=== PATIENT | female | born 1950 | race Caucasian/White ===

== ENCOUNTER 2017-03-24 19:17 | Emergency (ER) | payer OTHER ==
[~2017-03-24] VITALS: Ht 167.6 cm; Wt 86.4 kg
[~2017-03-24 19:17] MED LIST: ASPIR-LOW81 MG PO; COENZYME Q-1010 MG PO; GARLIC SUPPLEM300 MG PO; GLUCOSAMINE/CHONDROI PO; LEVOTHYROXINE0.05 M1 PO; MVI PO; VITAMIN B12 PO; VITAMIN E800 I1 PO
[2017-03-24 19:21] VITALS: TEMP 97.4
[2017-03-24] MEDS ORDERED: ZOCOR 10MG10 MG PO (19:26)
[2017-03-24] MEDS ORDERED: MULTI VITAMINS1 TAB PO (19:27)
[2017-03-24 20:18] LABS: COLLECTION METHOD CLEAN CATCH
[2017-03-24 20:26] LABS: MUCOUS Present /lpf; PH 5 (5-8); SQUAMOUS EPITHELIAL 0-2 /hpf; URINE APPEARANCE Clear; URINE BACTERIA None Seen /hpf; URINE BILIRUBIN Negative (NEGATIVE); URINE BLOOD 2+ (NEGATIVE); URINE COLOR Yellow; URINE GLUCOSE Negative (NEGATIVE); URINE KETONE Trace (NEGATIVE); URINE LEUKOCYTE ESTERASE Trace (NEGATIVE); URINE PROTEIN(semi-quant) Negative (NEGATIVE); URINE UROBILINOGEN Negative (NEGATIVE); URINE WBC 0-2 /hpf
[2017-03-24 20:32] LABS: ADJUSTED CALCIUM 8.8 mg/dL (8.4-10.2); ALANINE AMINOTRANSFERASE 29 U/L (9-52); ALBUMIN 4.7 gm/dL (3.5-5.0); ALKALINE PHOSPHATASE 134 U/L (50-136); ANION GAP 18 mmol/L (7-16); BILIRUBIN,TOTAL 0.6 mg/dL (0.0-1.0); BLOOD UREA NITROGEN 26 mg/dL (7-17); CALCIUM 9.4 mg/dL (8.4-10.2); CARBON DIOXIDE 22 mmol/L (22-30); CHLORIDE 101 mmol/L (98-107); CREATININE, serum 0.72 mg/dL (0.52-1.25); GLUCOSE 105 mg/dL (74-106); LIPASE 76 U/L (23-300); POTASSIUM 3.7 mmol/L (3.4-5.0); SODIUM 141 mmol/L (137-145); TOTAL PROTEIN 7.9 gm/dL (6.4-8.2)
[2017-03-24 20:37] LABS: BASO # 0.1 (0.0-0.2); BASO % 0.6 % (0.0-2.0); EOS # 0.2 (0.0-0.7); EOS % 1.4 % (0-4.0); GRAN # 10.5 (1.4-6.5); GRAN % 79.7 % (42.2-75.2); HEMATOCRIT 38.7 % (37.0-47.0); HEMOGLOBIN 12.7 g/dl (12.5-16.0); LYMPH # 1.8 (1.2-3.4); LYMPH % 13.4 % (20.0-51.0); MEAN CELL VOLUME 82 fl (80.0-100.0); MEAN CORPUSCULAR HEMOGLOBIN 27 pg (27.0-31.0); MEAN CORPUSCULAR HGB CONC 33 g/dl (33.0-37.0); MEAN PLATELET VOLUME 10.2 fl (7.4-10.4); MONO # 0.6 (0.1-0.6); MONO % 4.6 % (1.7-9.3); PLATELET COUNT 251 K/mm3 (130-400); WHITE BLOOD COUNT 13.2 K/mm3 (4.8-10.8)
[2017-03-24 20:44] LABS: TROPONIN-I < 0.012 ng/mL (0.000-0.034)
[2017-03-24 20:47] VITALS: BP 150/88
[2017-03-24] MEDS ORDERED: ZOFRAN ODT4 MG PO (21:17)
[2017-03-24 21:42] VITALS: PULSE 70
== END 2017-03-24 21:45 | disposition home or self-care (01) ==
LOC: COL.ER 19:17
PROVIDERS: Emergency Medicine; Family Medicine
DX: R11.2 Nausea with vomiting, unspecified (principal); R42 Dizziness and giddiness; E03.9 Hypothyroidism, unspecified; K21.9 Gastro-esophageal reflux disease without esophagitis; E78.5 Hyperlipidemia, unspecified; E78.00 Pure hypercholesterolemia, unspecified; Z79.82 Long term (current) use of aspirin; Z85.41 Personal history of malignant neoplasm of cervix uteri
CPT/HCPCS: J2405; J7030

== ENCOUNTER → 2017-06-06 | Outpatient (CLI) | payer OTHER ==
[~2017-06-06] MED LIST changes: +MULTI VITAMINS1 TAB PO; +ZOCOR 10MG10 MG PO; +ZOFRAN ODT4 MG PO
== END ==
LOC: MC.RAD 08:14
DX: Z12.31 Encounter for screening mammogram for malignant neoplasm of breast (principal)

== ENCOUNTER → 2018-09-28 | Outpatient (CLI) | payer BC | LOC: MC.RAD 07:00 | DX: Z12.31 Encounter for screening mammogram for malignant neoplasm of breast (principal); N64.89 Other specified disorders of breast ==

== ENCOUNTER → 2018-10-02 | Outpatient (CLI) | payer BC | LOC: MC.RAD 10:00 | DX: N63.20 Unspecified lump in the left breast, unspecified quadrant (principal) | CPT/HCPCS: G0279 ==

== ENCOUNTER 2019-02-19 13:45 | Day surgery (SDC) | payer BC ==
[2019-02-19] VITALS (8 sets, daily range): BP systolic 99–150; BP diastolic 61–86; PULSE 45–70; TEMP 97.6–98.5
[~2019-02-19] VITALS: Ht 167.6 cm; Wt 83.6 kg
[~2019-02-19 13:45] MED LIST changes: -COENZYME Q-1010 MG PO; +COENZYME Q-10100 M1 PO; -GARLIC SUPPLEM300 MG PO; -LEVOTHYROXINE0.05 M1 PO; -MULTI VITAMINS1 TAB PO; +ONE-A-DAY WOMEN1 TAB PO; +PHARMASSURE GA500 MG PO; +SYNTHROID0.05 MG/TA PO; -ZOCOR 10MG10 MG PO; +ZOCOR 20MG20 MG PO
[2019-02-19] MEDS ORDERED: MASON NATURAL500 MG PO (14:06)
[2019-02-19] MEDS ORDERED: MAGNESIUM250 M1 PO (14:06)
[2019-02-19] MEDS ORDERED: CALCIUM CITRAT950 MG PO (14:07)
[2019-02-19] MEDS ORDERED: GLUCOSAMINE & C1 CA2 PO (14:07)
[2019-02-19] MEDS ORDERED: SELENIUM200 MC5 PO (14:08)
[2019-02-19] MEDS ORDERED: LUTEIN6 MG PO (14:08)
[2019-02-19] MEDS ORDERED: NATURE'S BLE1000 MCG PO (14:09)
[2019-02-19] MEDS ORDERED: NATURAL E400 IU PO (14:09)
[2019-02-19] MEDS ORDERED: BILBERRY EXTRAC80 MG PO (14:10)
[2019-02-19] MEDS ORDERED: EPA FISH OIL1 SGL PO (14:11)
[2019-02-19] MEDS ORDERED: PRILOTC PO (14:11)
--- NOTE | 2019-02-19 15:15 | NUR ---
Patient returned to [facility], alert and oriented. Ambulated to chair without difficulty. Vital signs obtained, WNL. Denies any pain or nausea. States she would like a water and apple sauce. Call [facility]kins within reach, will continue to monitor.
--- NOTE | 2019-02-19 15:30 | NUR ---
Patient states that she is feeling well. VItal signs WNL. Tolerating food and drink well. is at bedside. Call atkins within reach, will continue to monitor.
--- NOTE | 2019-02-19 15:45 | NUR ---
Patient states that she is feeling nauseous. Per MD give 4mg Zofran IV now. IV fluids continue to infuse. Call atkins within reach, will monititor.
--- NOTE | 2019-02-19 16:15 | NUR ---
Patient states no real improvement with nausea. IV fluid rate increased. Will continue to monitor.
--- NOTE | 2019-02-19 16:21 | NUR ---
Patient states that nausea has not improved with medication. Vital signs obtained. Will continue to monitor.
--- NOTE | 2019-02-19 16:30 | NUR ---
Patient states that she is feeling slightly better. Requesting saltine crackers at this time. Will continue to monitor.
--- NOTE | 2019-02-19 16:45 | NUR ---
Patient states she is ready to go home at this time. IV removed. Discharge instructions reviewed with patient and . All questions answered. Patient to get dressed at this time.
== END 2019-02-19 17:12 | disposition home or self-care (01) ==
LOC: SDCO 13:45
DX: Z12.11 Encounter for screening for malignant neoplasm of colon (principal); E78.00 Pure hypercholesterolemia, unspecified; E03.9 Hypothyroidism, unspecified; K21.9 Gastro-esophageal reflux disease without esophagitis; K44.9 Diaphragmatic hernia without obstruction or gangrene
CPT/HCPCS: J2250; J2405; J3010; J7030

== ENCOUNTER → 2019-10-07 | Outpatient (CLI) | payer BC ==
[~2019-10-07] MED LIST changes: +BILBERRY EXTRAC80 MG PO; +CALCIUM CITRAT950 MG PO; +EPA FISH OIL1 SGL PO; +GLUCOSAMINE & C1 CA2 PO; +LUTEIN6 MG PO; +MAGNESIUM250 M1 PO; +MASON NATURAL500 MG PO; +NATURAL E400 IU PO; +NATURE'S BLE1000 MCG PO; +PRILOTC PO; +SELENIUM200 MC5 PO
== END ==
LOC: MC.RAD 09:15
DX: Z12.31 Encounter for screening mammogram for malignant neoplasm of breast (principal)

== ENCOUNTER → 2021-01-04 | Outpatient (CLI) | payer BC | LOC: MC.RAD | DX: Z12.31 Encounter for screening mammogram for malignant neoplasm of breast (principal) ==

== ENCOUNTER → 2022-06-06 | Outpatient (CLI) | payer MEDICARE | LOC: MC.RAD 07:15 | DX: Z12.31 Encounter for screening mammogram for malignant neoplasm of breast (principal) ==

== ENCOUNTER → 2022-06-11 | Outpatient (CLI) | payer MEDICARE | LOC: MC.RAD 14:27 | DX: N63.15 Unspecified lump in the right breast, overlapping quadrants (principal) ==

== ENCOUNTER → 2022-06-18 | Outpatient (CLI) | payer MEDICARE | LOC: MC.RAD 12:30 | DX: N63.10 Unspecified lump in the right breast, unspecified quadrant (principal) ==